=== PATIENT | female | born 1985 | race Caucasian/White ===

== ENCOUNTER 2016-06-12 13:33 | Emergency (ER) | payer SELFPAY ==
[2016-06-12 14:38] LABS: ABSOLUTE BASOPHILS # (AUTO) 0.1 10^3/uL (0.0-0.2); ABSOLUTE LYMPHOCYTES (AUTO) 1.2 10^3/uL (0.5-4.7); ABSOLUTE MONOCYTES (AUTO) 0.4 10^3/uL (0.1-1.4); ABSOLUTE NEUT (AUTO) 8.7 10^3/uL (1.7-8.2); BASOPHILS % (AUTO) 0.5 % (0-2); EOSINOPHILS % (AUTO) 0.2 % (0-6); HEMOGLOBIN 15.1 g/dL (12.0-15.5); HGB HCT DIFFERENCE 0.3; LYMPHOCYTES % (AUTO) 11.8 % (13-45); MEAN CORPUSCULAR HEMOGLOBIN 30.9 pg (27.0-33.4); MEAN CORPUSCULAR HGB CONC 33.6 g/dL (32.0-36.0); MEAN CORPUSCULAR VOLUME 92 fl (80-97); MONOCYTES % (AUTO) 4.2 % (3-13); RED CELL DISTRIBUTION WIDTH 13.9 % (11.5-14.0); SEGMENTED NEUTROPHILS % (AUTO) 83.3 % (42-78); WHITE BLOOD COUNT 10.4 10^3/uL (4.0-10.5)
[2016-06-12 14:50] LABS: APPEARANCE,URINE SLIGHTLY-CLOUDY; BILIRUBIN,URINE NEGATIVE (NEGATIVE); GLUCOSE, URINE NEGATIVE (NEGATIVE); KETONES,URINE NEGATIVE (NEGATIVE); LEUKOCYTE ESTERASE,URINE NEGATIVE (NEGATIVE); NITRITE,URINE NEGATIVE (NEGATIVE); PROTEIN,URINE NEGATIVE (NEGATIVE); URINE SPECIFIC GRAVITY 1.016; UROBILINOGEN,URINE NEGATIVE mg/dL (<2.0)
[2016-06-12 15:03] LABS: ALANINE AMINOTRANSFERASE 21 U/L (9-52); ALBUMIN 4.7 g/dL (3.5-5.0); ALKALINE PHOSPHATASE 62 U/L (38-126); ANION GAP 15 (5-19); ASPARTATE AMINO TRANSFERASE 18 U/L (14-36); BILIRUBIN,DIRECT 0.3 mg/dL (0.0-0.4); BILIRUBIN,TOTAL 0.7 mg/dL (0.2-1.3); BLOOD UREA NITROGEN 7 mg/dL (7-20); CALCIUM 9.7 mg/dL (8.4-10.2); CARBON DIOXIDE 25 mmol/L (22-30); CHLORIDE 104 mmol/L (98-107); CREATININE RESULT 0.79 mg/dL (0.52-1.25); GLUCOSE 131 mg/dL (75-110); POTASSIUM 4.1 mmol/L (3.6-5.0); TOTAL PROTEIN 7.4 g/dL (6.3-8.2)
[2016-06-12 15:04] LABS: ALCOHOL < 10 mg/dL (NONE DETECTED)
[2016-06-12 15:05] LABS: URINE BARBITURATES SCREEN NEGATIVE; URINE METHADONE SCREEN NEGATIVE; URINE OPIATES LOW NEGATIVE; URINE PHENCYCLIDINE SCREEN NEGATIVE
--- NOTE | 2016-06-12 15:22 | ER Document Report ---
ED Psych Disorder / Suicide - General Mode of Arrival: Ambulatory Information source: Patient TRAVEL OUTSIDE OF THE [place] IN LAST 30 DAYS: No - HPI Patient complains to provider of: Other - Taking 5 OTC sleeping pills Onset: Other - last night at 2345 Associated symptoms: Other - see notes above <RONY HARTMANN - Last Filed: 06/12/16 15:31> <MARIA FERNANDA BRITTON - Last Filed: 06/12/16 21:30> - General Chief Complaint: Psych Problem Stated Complaint: PSYCH EVAL Notes: 30 year old female presents to the ED stating that she took five 50 mg OTC sleeping aids last night at 2345. Patient states that she wanted help to go to sleep, but was planning on taking more as well. Patient reports that she "felt worthless last night", but doesn't feel that way currently. Patient recently split up with her finance and states that she has been upset about it. She states that her ex-fiance called [facility], who called [facility] which came to her house. Patient denies having a psychiatric counselor, but states that she will be getting one. Patient states that she was on Paxil (stopped a few years ago) and Klonopin. (RONY HARTMANN) - Related Data Allergies/Adverse Reactions: No Known Allergies Allergy (Verified 06/12/16 13:38) Past Medical History - General Information source: Patient - Social History Smoking Status: Unknown if Ever Smoked Family History: Reviewed & Not Pertinent Patient has suicidal ideation: Yes Pulmonary Medical History: Reports: Hx Asthma, Hx Bronchitis Renal/ Medical History: Denies: Hx Peritoneal Dialysis Musculoskeltal Medical History: Denies Hx Arthritis Psychiatric Medical History: Reports: Hx Anxiety, Hx Depression Past Surgical History: Reports: Hx Tubal Ligation. Denies: Hx Pacemaker - Immunizations Hx Diphtheria, Pertussis, Tetanus Vaccination: Yes <RONY HARTMANN - Last Filed: 06/12/16 15:31> Review of Systems - Review of Systems Constitutional: No symptoms reported EENT: No symptoms reported Cardiovascular: No symptoms reported Respiratory: No symptoms reported Gastrointestinal: No symptoms reported Genitourinary: No symptoms reported Female Genitourinary: No symptoms reported Musculoskeletal: No symptoms reported Skin: No symptoms reported Hematologic/Lymphatic: No symptoms reported Neurological/Psychological: No symptoms reported -: Yes All other systems reviewed and negative <RONY HARTMANN - Last Filed: 06/12/16 15:31> Physical Exam - General General appearance: Alert In distress: None - HEENT Head: Normocephalic, Atraumatic Eyes: Normal Extraocular movements intact: Yes Pupils: PERRL - Respiratory Respiratory status: No respiratory distress Breath sounds: Normal - Cardiovascular Rhythm: Regular Heart sounds: Normal auscultation - Abdominal Inspection: Normal Distension: No distension Tenderness: Nontender - Back Back: Normal - Extremities General upper extremity: Normal inspection, Normal ROM, Normal strength General lower extremity: Normal inspection, Normal ROM, Normal strength - Neurological Neuro grossly intact: Yes Cognition: Normal Orientation: AAOx4 [place] Coma Scale Eye Opening: Spontaneous [place] Coma Scale Verbal: Oriented [place] Coma Scale Motor: Obeys Commands [place] Coma Scale Total: 15 Speech: Normal - Psychological Associated symptoms: Normal affect, Normal mood - Skin Skin Temperature: Warm Skin Moisture: Dry Skin Color: Normal <RONY HARTMANN - Last Filed: 06/12/16 15:31> Course - Laboratory Result Diagrams: 06/12/16 14:15 06/12/16 14:15 <RONY HARTMANN - Last Filed: 06/12/16 15:31> - Laboratory Result Diagrams: 06/12/16 14:15 06/12/16 14:15 <MARIA FERNANDA BRITTON - Last Filed: 06/12/16 21:30> - Re-evaluation Re-evalutation: 06/12/16 Patient appears well this time. She is not suicidal or homicidal. Patient does not have any intention of hurting herself today. Patient was seen by mental health who agrees that the patient is stable from a psychiatric standpoint. Patient is medically stable. Blood work and urine within normal limits. Patient feels well this time. She'll be discharged home and is to follow-up with a counselor outpatient. Return if any worsening or concerning symptoms. Stable for discharge. (MARIA FERNANDA BRITTON) - Vital Signs Vital signs: Temp Pulse Resp BP Pulse Ox 98.7 F 90 16 136/93 H 99 06/12/16 13:39 06/12/16 18:00 06/12/16 18:00 06/12/16 18:00 06/12/16 18:00 - Laboratory Laboratory results interpreted by me: 06/12/16 06/12/16 14:15 14:15 Seg Neutrophils % 83.3 H Lymphocytes % 11.8 L Absolute Neutrophils 8.7 H Glucose 131 H Salicylates < 1.0 L Acetaminophen < 10 L Discharge <RONY HARTMANN - Last Filed: 06/12/16 15:31> <MARIA FERNANDA BRITTON - Last Filed: 06/12/16 21:30> - Discharge Clinical Impression: Anxiety Condition: Stable Disposition: HOME, SELF-CARE Instructions: Anxiety ([facility]) Additional Instructions: Please follow-up as instructed by the mental health provider. Please return if you have any worsening or concerning symptoms. Please only take medication as indicated on the bottle. Forms: Return to Work Referrals: [facility] [Provider Group] - Follow up as needed Scribe Attestation: 06/12/16 21:30 I personally performed the services described in the documentation, reviewed and edited the documentation which was dictated to the scribe in my presence, and it accurately records my words and actions. (MARIA FERNANDA BRITTON) Scribe Documentation - Scribe Written by Benibe:: Lidia Wei, 06/12/2016 1609 acting as scribe for :: Marie <RONY HARTMANN - Last Filed: 06/12/16 15:31>
--- NOTE | 2016-06-12 17:55 | PSYCHOLOGICAL NOTE ---
Psych Note - Psych Note Psych Note: Patient presented to [facility] ED stating that she took five 50 mg OTC sleeping aids last night at 2345. Patient states that she wanted help to go to sleep, but was planning on taking more as well. Patient reports that she "felt worthless last night", but doesn't feel that way currently. Patient recently split up with her finance and states that she has been upset about it. She states that her ex- fiance called [facility], who called [facility] which came to her house. Patient states that she is here because she took more sleeping pills then her ex was comfortable with. She stated she took 5 sleeping pills and that she normally takes 2. She denies that she wanted to hurt herself. She confirms that she "probably said things" to her ex because they were arguing. Patient confirms that she has no provider and has not been on any medications but has a diagnosis of anxiety, depression and agoraphobia. She states that she was much worse but she forced herself to get a job and is making progress. Patient and clinician review past coping skills that have been successful for the patient such as deep breathing. Clinician introduced visualization to the patient and review new coping skill. Patient states that the mobile chore worker stated they would assist the patient in securing a mental health outpatient provider. Patient is alert and orientated to person place time and circumstance. Patient' s mood is euthymic and affect. Patient denies suicidal and homicidal ideation. Patient denies auditory and visual hallucinations; No delusions are noted. Thought process is currently logical organized and linear. Conversational speech was within normal rate tone and prosody. Eye contact was well maintained. Intellectual abilities appear to be within average range. Attention and concentration are good. Insight, judgment, impulse control are fair. 300.00 (F41.9) Unspecified anxiety disorder per history provided by patient 311 (F32.9) Unspecified depressive disorder per history provided by patient Impression\\plan: Patient is psychiatrically cleared for discharge. Patient denies suicidal and homicidal ideation. Patient discloses she did take 5 sleeping pills however denies intent of harm. Patient does not meet criteria per [place] GS 122C. Patient is demonstrating using coping skills and making positive efforts to improve mental health. Patient states mobile chore worker stated they will be assisting her with her finding appropriate provider in the local community. Clinician will additionally provide local resource list to patient. Patient is recommended to follow-up with provider of choice. Dr. Sheriff was consulted on the care and management of this patient. Attending physician is in agreement with recommendations and disposition.
[2016-06-12 18:19] VITALS: BP 136/93
--- NOTE | 2016-06-13 06:20 | EKG REPORT ---
SEVERITY:- NORMAL ECG - SINUS RHYTHM : Confirmed by: Sunny Garber 13-Jun-2016 06:19:29
== END 2016-06-12 18:05 | disposition home or self-care (01) ==
LOC: ER 13:33
DX: F41.9 Anxiety disorder, unspecified (principal); F32.9 Major depressive disorder, single episode, unspecified; J45.909 Unspecified asthma, uncomplicated; Z98.51 Tubal ligation status
CPT/HCPCS: 36415; 80053; 80307; 81001; 84703; 85025; 93005; 93010; 99285

== ENCOUNTER 2017-02-27 20:18 | Emergency (ER) | payer SELFPAY ==
[2017-02-27] MEDS ORDERED: NORMAL SALINE 1000 ML 1,000 ML IV ONE (21:36)
--- NOTE | 2017-02-27 21:38 | ER Document Report ---
ED General - General Chief Complaint: Chest Tightness Stated Complaint: TIGHTNESS OF CHEST Time Seen by Provider: 02/27/17 20:53 Mode of Arrival: Ambulatory Information source: Patient Notes: 31 years old female today when she came out of the shower she felt her heart was pounding with the chest discomfort lasted for about an hour and started to subside. During the time she thought she saw her hands and the knees that was turning blue. She has been taking Sudafed 30 mg every 4 hours For the last 2 days for her nasal congestion. She also smoked cannabis. Denies any nausea or vomiting now denies any difficulty in breathing now but had some discomfort at that time. Denies any left arm numbness tingling sensation. Has a history of anxiety was on Paxil has not been taking for a year. TRAVEL OUTSIDE OF THE [place] IN LAST 30 DAYS: No - Related Data Allergies/Adverse Reactions: No Known Allergies Allergy (Verified 02/27/17 20:30) Home Medications: Current Home Medications Albuterol Sulfate [Proventil Hfa] 1 - 2 puff IH PRN PRN 02/27/17 [History] Past Medical History - Social History Smoking Status: Current Every Day Smoker Chew tobacco use (# tins/day): No Frequency of alcohol use: Social Drug Abuse: Marijuana Family History: Reviewed & Not Pertinent Patient has suicidal ideation: No Patient has homicidal ideation: No - Past Medical History Cardiac Medical History: Denies: Hx Coronary Artery Disease, Hx Heart Attack, Hx Hypertension Pulmonary Medical History: Reports: Hx Asthma, Hx Bronchitis Denies: Hx COPD, Hx Pneumonia Neurological Medical History: Denies: Hx Cerebrovascular Accident, Hx Seizures Renal/ Medical History: Denies: Hx Peritoneal Dialysis Musculoskeltal Medical History: Denies Hx Arthritis Psychiatric Medical History: Reports: Hx Anxiety, Hx Depression Past Surgical History: Reports: Hx Tubal Ligation. Denies: Hx Pacemaker - Immunizations Hx Diphtheria, Pertussis, Tetanus Vaccination: Yes Review of Systems - Review of Systems Notes: REVIEW OF SYSTEMS: CONSTITUTIONAL : Denies fever, chills, or sweats. Denies recent illness. EENT: Denies eye, ear, throat, or mouth pain or symptoms. Denies nasal or sinus congestion or discharge. Denies throat, tongue, or mouth swelling or difficulty swallowing. CARDIOVASCULAR: Denies chest pain. Denies palpitations or racing or irregular heart beat. Denies ankle edema. RESPIRATORY: Denies cough, cold, or chest congestion. Denies shortness of breath, difficulty breathing, or wheezing. GASTROINTESTINAL: Denies abdominal pain or distention. Denies nausea, vomiting , or diarrhea. Denies blood in vomitus, stools, or per rectum. Denies black, tarry stools. Denies constipation. GENITOURINARY: Denies difficulty urinating, painful urination, burning, frequency, blood in urine, or discharge. FEMALE GENITOURINARY: Denies vaginal bleeding, heavy or abnormal periods, irregular periods. Denies vaginal discharge or odor. MUSCULOSKELETAL: Denies back or neck pain or stiffness. Denies joint pain or swelling. SKIN: Denies rash, lesions or sores. HEMATOLOGIC : Denies easy bruising or bleeding. LYMPHATIC: Denies swollen, enlarged glands. NEUROLOGICAL: Denies confusion or altered mental status. Denies passing out or loss of consciousness. Denies dizziness or lightheadedness. Denies headache. Denies weakness or paralysis or loss of use of either side. Denies problems with gait or speech. Denies sensory loss, numbness, or tingling. Denies seizures. PSYCHIATRIC: Denies anxiety or stress. Denies depression, suicidal ideation, or homicidal ideation. ALL OTHER SYSTEMS REVIEWED AND NEGATIVE. PHYSICAL EXAMINATION: GENERAL: Well-appearing, well-nourished and in no acute distress. HEAD: Atraumatic, normocephalic. EYES: Pupils equal round and reactive to light, extraocular movements intact, conjunctiva are normal. ENT: Nares patent, oropharynx clear without exudates. Moist mucous membranes. NECK: Normal range of motion, supple without lymphadenopathy LUNGS: Breath sounds clear to auscultation bilaterally and equal. No wheezes rales or rhonchi. HEART: Regular rate and rhythm without murmurs ABDOMEN: Soft, nontender, nondistended abdomen. No guarding, no rebound. No masses appreciated. Female : deferred Musculoskeletal: Normal range of motion, no pitting or edema. No cyanosis. NEUROLOGICAL: Cranial nerves grossly intact. Normal speech, normal gait. Normal sensory, motor exams PSYCH: Normal mood, normal affect. Appears a little anxious SKIN: Warm, Dry, normal turgor, no rashes or lesions noted. Dictation was performed using [employer] recognition software Physical Exam - Vital signs Vitals: Temp Pulse Resp BP Pulse Ox 98.8 F 83 16 165/96 H 99 02/27/17 20:38 02/27/17 20:38 02/27/17 20:38 02/27/17 20:38 02/27/17 20:38 Course - Re-evaluation Re-evalutation: 02/27/17 23:30 Post IV hydration patient started to feel better - Vital Signs Vital signs: Temp Pulse Resp BP Pulse Ox 98.8 F 83 16 165/96 H 99 02/27/17 20:38 02/27/17 20:38 02/27/17 20:38 02/27/17 20:38 02/27/17 20:38 - Laboratory Result Diagrams: 02/27/17 22:29 02/27/17 22:29 Laboratory results interpreted by me: 02/27/17 22:29 Chloride 111 H Carbon Dioxide 21 L BUN 4 L Total Protein 6.1 L Discharge - Discharge Clinical Impression: Palpitation Condition: Fair Disposition: HOME, SELF-CARE Instructions: Palpitations (Irregular or Rapid Heartrate) ([facility]) Additional Instructions: Stop taking Sudafed
[2017-02-27 22:51] LABS: ABSOLUTE BASOPHILS # (AUTO) 0.1 10^3/uL (0.0-0.2); ABSOLUTE EOSINOPHILS # (AUTO) 0.1 10^3/uL (0.0-0.6); ABSOLUTE LYMPHOCYTES (AUTO) 1.9 10^3/uL (0.5-4.7); ABSOLUTE MONOCYTES (AUTO) 0.5 10^3/uL (0.1-1.4); ABSOLUTE NEUT (AUTO) 7.7 10^3/uL (1.7-8.2); BASOPHILS % (AUTO) 0.7 % (0-2); EOSINOPHILS % (AUTO) 1.4 % (0-6); HEMATOCRIT 37.8 % (36.0-47.0); HEMOGLOBIN 12.9 g/dL (12.0-15.5); HGB HCT DIFFERENCE 0.9; LYMPHOCYTES % (AUTO) 18.5 % (13-45); MEAN CORPUSCULAR HEMOGLOBIN 31.8 pg (27.0-33.4); MEAN CORPUSCULAR HGB CONC 34.3 g/dL (32.0-36.0); MEAN CORPUSCULAR VOLUME 93 fl (80-97); MONOCYTES % (AUTO) 4.9 % (3-13); RED BLOOD COUNT 4.07 10^6/uL (3.72-5.28); RED CELL DISTRIBUTION WIDTH 12.8 % (11.5-14.0); SEGMENTED NEUTROPHILS % (AUTO) 74.5 % (42-78); WHITE BLOOD COUNT 10.3 10^3/uL (4.0-10.5)
[2017-02-27 23:00] LABS: ALANINE AMINOTRANSFERASE 27 U/L (9-52); ALBUMIN 3.9 g/dL (3.5-5.0); ALKALINE PHOSPHATASE 57 U/L (38-126); ANION GAP 10 (5-19); ASPARTATE AMINO TRANSFERASE 18 U/L (14-36); BILIRUBIN,DIRECT 0.1 mg/dL (0.0-0.4); BILIRUBIN,TOTAL 0.2 mg/dL (0.2-1.3); BLOOD UREA NITROGEN 4 mg/dL (7-20); CALCIUM 8.8 mg/dL (8.4-10.2); CARBON DIOXIDE 21 mmol/L (22-30); CHLORIDE 111 mmol/L (98-107); CREATININE RESULT 0.61 mg/dL (0.52-1.25); GLUCOSE 85 mg/dL (75-110); POTASSIUM 3.7 mmol/L (3.6-5.0); SODIUM 141.9 mmol/L (137-145); TOTAL PROTEIN 6.1 g/dL (6.3-8.2)
[2017-02-27 23:53] VITALS: BP 155/80
--- NOTE | 2017-02-28 08:43 | EKG REPORT ---
SEVERITY:- NORMAL ECG - SINUS RHYTHM : Confirmed by: Semaj Macdonald MD 28-Feb-2017 08:43:30
== END 2017-02-27 23:42 | disposition home or self-care (01) ==
LOC: ER 20:18
DX: R00.2 Palpitations (principal); R07.89 Other chest pain; R09.81 Nasal congestion; F17.200 Nicotine dependence, unspecified, uncomplicated; F12.10 Cannabis abuse, uncomplicated
CPT/HCPCS: 93005; 99285; 96360; 36415; 85025; 81025; 80053; 93010; J7030

== ENCOUNTER → 2017-09-13 | Outpatient (CLI) | payer OTHER ==
--- NOTE | 2017-09-14 09:40 | RADIOLOGY REPORT (SQ) ---
EXAM DESCRIPTION: MRI RT LOWER JOINT WITHOUT COMPLETED DATE/TIME: 09/13/2017 7:27 pm REASON FOR STUDY: M23.91 UNSPECIFIED INTERNAL DERANGEMENT OF RIGHT KNEE M23.91 UNSPECIFIED INTERNAL DERANGEMENT OF RIGHT KNEE COMPARISON: None. TECHNIQUE: Rightknee images acquired and stored on PACS. Multiplanar images include fat sensitive s equences as T1, water sensitive sequences as FST2 or STIR, cartilage sensitive sequences as FSPD, and gradient echo sequences. LIMITATIONS: None. FINDINGS: JOINT AND BURSAE: Physiologic joint space fluid is present with a small Muñoz cyst. BONE CORTEX AND MARROW: No alteration of signal to suggest marrow replacement. No worrisome bone lesi ons. No occult fracture. ACL: Intact. No degeneration or ganglion cyst. PCL: Intact. MCL: Intact. No periligamentous edema or fluid. LCL: Intact. No periligamentous edema or fluid. MEDIAL MENISCUS: No tears. No abnormal signal. LATERAL MENISCUS: Tiny inner edge tear along the mid body lateral meniscus, best shown on coronal chio ge 15 MEDIAL COMPARTMENT: Cartilage preserved. No bone bruises or reactive marrow edema. No osteophytes. LATERAL COMPARTMENT: Cartilage preserved. No bone bruises or reactive marrow edema. No osteophytes. PATELLA: No chondromalacia. No subchondral cysts. Medial and lateral retinacula intact. EXTENSOR MECHANISM: Intact. Quadriceps and patella tendons normal. SOFT TISSUES: Adjacent muscles and subcutaneous tissues normal. Normal flow void in popliteal artery and vein. OTHER: No other significant finding. IMPRESSION: Tiny inner edge tear along the mid body lateral meniscus. TECHNICAL DOCUMENTATION: JOB ID: [id number] [employer] website- All Rights Reserved Reading location - IP/workstation name: [facility]
== END ==
LOC: RAD 19:14
PROVIDERS: ATTEND Orthopaedic Surgery
DX: M23.91 Unspecified internal derangement of right knee (principal)